=== PATIENT | male | born 1985 | race Caucasian/White ===

== ENCOUNTER 2018-02-23 02:25 | Emergency (ER) | payer SELFPAY ==
[~2018-02-23] VITALS: Ht 188 cm; Wt 99.8 kg
--- NOTE | 2018-02-23 02:48 | NUR ---
Dr. Rodriguez at bedside for MSE.
[2018-02-23] MEDS ORDERED: QUET300T2 PO (02:55)
[2018-02-23] MEDS ORDERED: WELLBUTRIN PO (02:55)
[2018-02-23] MEDS ORDERED: HYDR50CA PO (02:55)
[2018-02-23] MEDS ORDERED: OLANZAPINE 5 MG TABLET ONE (02:57)
[2018-02-23] MEDS ORDERED: OLANZAPINE 5 MG TABLET PO ONE (03:00)
[2018-02-23 03:12] LABS: BASOPHILS # (AUTO) 0.1 K/uL (0.0-8.0); BASOPHILS % (AUTO) 0.6 % (0.0-2.0); EOSINOPHILS % (AUTO) 0.5 % (0.0-7.0); HEMATOCRIT 39.7 % (36.7-47.1); HEMOGLOBIN 13.7 g/dL (12.5-16.3); LYMPHOCYTES # (AUTO) 1.5 K/uL (20.0-40.0); LYMPHOCYTES % (AUTO) 15.8 % (20.5-51.5); MEAN CORPUSCULAR HEMOGLOBIN 29.6 uug (23.8-33.4); MEAN CORPUSCULAR HGB CONC 35 g/dL (32.5-36.3); MEAN CORPUSCULAR VOLUME 85.8 fL (73.0-96.2); MONOCYTES # (AUTO) 0.8 K/uL (2.0-10.0); MONOCYTES % (AUTO) 7.8 % (0.0-11.0); NEUTROPHILS # (AUTO) 7.4 K/uL (1.8-8.9); NEUTROPHILS % (AUTO) 75.3 % (38.5-71.5); PLATELET COUNT (AUTO) 356 K/uL (152-348); RED BLOOD CELL COUNT(AUTO) 4.63 MIL/uL (4.06-5.63); WHITE BLOOD COUNT (AUTO) 9.8 K/uL (3.6-10.2)
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
[2018-02-23 04:03] LABS: CARBON DIOXIDE 22 mmol/L (21-32); CHLORIDE 101 mmol/L (98-107); CREATININE 1.2 mg/dL (0.6-1.3); GLUCOSE 117 mg/dL (74-106); UREA NITROGEN, BLOOD 11 mg/dL (7-18)
[2018-02-23 04:04] LABS: ETHANOL < 3 MG/DL (0-0)
[2018-02-23 04:06] LABS: POTASSIUM 2.7 mmol/L (3.5-5.1)
[2018-02-23 04:08] LABS: ALANINE AMINOTRANSFERASE 52 U/L (16-63); ALKALINE PHOSPHATASE 105 U/L (50-136); ASPARTATE AMINOTRANSFERASE 29 U/L (15-37); BILIRUBIN,DIRECT 0.2 mg/dL (0.0-0.2); BILIRUBIN,TOTAL 0.6 mg/dL (0.2-1.0); TOTAL PROTEIN, SERUM 7.7 g/dL (6.4-8.2)
[2018-02-23 04:09] LABS: ACETAMINOPHEN < 2.0 ug/mL (10-30)
[2018-02-23] MEDS ORDERED: HALOPERIDOL LACTATE 5 MG/1 ML VIAL ONE (04:09)
[2018-02-23] MEDS ORDERED: LORAZEPAM 2 MG/1 ML VIAL ONE (04:09)
[2018-02-23] MEDS ORDERED: diphenhydrAMINE 50 MG/1 ML VIAL ONE (04:09)
[2018-02-23] MEDS ORDERED: diphenhydrAMINE 50 MG/1 ML VIAL IM ONE (04:15)
[2018-02-23] MEDS ORDERED: POTASSIUM CHLORIDE 20 MEQ TAB.PRT.SR PO ONE ×2 (04:15→05:00)
[2018-02-23] MEDS ORDERED: LORAZEPAM 2 MG/1 ML VIAL IM ONE (04:15)
[2018-02-23] MEDS ORDERED: HALOPERIDOL LACTATE 5 MG/1 ML VIAL IM ONE (04:15)
[2018-02-23] MEDS ORDERED: POTASSIUM CHLORIDE 20 MEQ TAB.PRT.SR ONE ×3 (04:20→06:15)
--- NOTE | 2018-02-23 04:42 | NUR ---
Pt provided urine sample, sent to lab.
--- NOTE | 2018-02-23 05:00 | NUR ---
Pt in bed sleeping, no acute signs of distress.
[2018-02-23 05:10] LABS: *BLOOD, URINE NEGATIVE (NEGATIVE); *CLARITY,URINE SLIGHTLY CLOUDY (CLEAR); *COLOR,URINE YELLOW (YELLOW); *KETONES,URINE NEGATIVE (NEGATIVE); *PROTEIN,URINE 2+ (NEGATIVE); LEUKOCYTE ESTERASE ,URINE NEGATIVE (NEGATIVE); NITRITE, URINE NEGATIVE (NEGATIVE); UGLUCOSE NEGATIVE (NEGATIVE)
[2018-02-23 05:12] LABS: *BILIRUBIN,URIN 2+ (NEGATIVE)
[2018-02-23 05:18] LABS: BACTERIA,URINE NONE SEEN /HPF (NONE SEEN); CALCIUM OXALATE CRYSTALS,UR MODERATE /HPF (NONE SEEN); RBC,URINE 0-3 /HPF (0-3); SQUAMOUS EPITHELIAL CELL,UR FEW /HPF (NONE SEEN); WBC,URINE 0-3 /HPF (0-3)
[2018-02-23 05:19] LABS: MUCUS,URINE MANY /LPF (0-FEW)
[2018-02-23 05:34] LABS: *AMPHETAMINE, URINE POSITIVE (NEGATIVE); *BARBITURATE, URINE NEGATIVE (NEGATIVE); *CANNABINOID, URINE NEGATIVE (NEGATIVE); *COCCAINE, URINE NEGATIVE (NEGATIVE); *OPIATE, URINE NEGATIVE (NEGATIVE); *PHENCYCLIDINE SCREEN,URINE NEGATIVE (NEGATIVE)
--- NOTE | 2018-02-23 07:30 | NUR ---
PT IS AROUSABLE, BUT VERY SEDATED, DIFFICULT FOR PT TO FOLLOW ANY DIRECTIONS.
--- NOTE | 2018-02-23 08:15 | NUR ---
Patient is resting comfortably in bed with eyes closed, NAD noted.
--- NOTE | 2018-02-23 09:31 | NUR ---
Pt is awake a/o x3. Dr Garcia evaluating the Pt. Pt states still being suecidal but no plan expressed. PET called, Juan C noe [employer] MACHINE OPERATOR will eval the pt. ETA 1 hour. Breakfast provided.
--- NOTE | 2018-02-23 10:37 | NUR ---
Juan C Leavitt from PET at the bedside for Psych eval.
--- NOTE | 2018-02-23 11:46 | NUR ---
Fatemeh dorsey provided by animal care supervisor.
--- NOTE | 2018-02-23 11:52 | NUR ---
Patient discharged in stable conditon. Written and verbal after care instructions given. Patient verbalizes understanding of instructions. pt left ER w/ steady gait.
[2018-02-23 11:53] VITALS: BP 117/77
== END 2018-02-23 11:54 | disposition home or self-care (01) ==
LOC: ER 02:29
DX: R45.850 Homicidal ideations (principal); R45.851 Suicidal ideations; E87.6 Hypokalemia; F17.200 Nicotine dependence, unspecified, uncomplicated; F12.10 Cannabis abuse, uncomplicated; F15.10 Other stimulant abuse, uncomplicated
CPT/HCPCS: 36415; 80307; 83735; 85025; A4663; G0480; G0480-TC; J1200; J1630; J2060